=== PATIENT | female | born 1980 | race American Indian/Alaskan Native ===

== ENCOUNTER 2021-09-20 00:27 | Emergency (ER) | payer SELFPAY ==
[2021-09-20] MEDS ORDERED: ASPIRIN 325 MG TAB PO ONE (00:32)
[2021-09-20] MEDS ORDERED: hydrALAZINE 20 MG/1 ML INJ IV ONE (00:34)
--- NOTE | 2021-09-20 00:36 | Event Note ---
ED Screening Note Date of service: 09/20/21 Time: 00:34 ED Screening Note: Patient is a 40-year-old -[place] female with a history of hypertension and noncompliant with her medications who presents to the ED with complaint of acute onset persistent left-sided chest pain with elevated blood pressure for the last 3 days. Patient states that she has not taken her blood pressure medications for a while and is currently visiting from [place] from [place] for the last 3 days. Patient denies shortness of breath, dizziness, syncope, nausea and vomiting or diarrhea, dysuria, abdominal pain, diaphoresis, headache, neck pain, back pain, palpitations, fever and chills or cough. This initial assessment/diagnostic orders/clinical plan/treatment(s) is/are subject to change based on patients health status, clinical progression and re- assessment by fellow clinical providers in the ED. Further treatment and workup at subsequent clinical providers discretion. Patient/guardian urged not to elope from the ED as their condition may be serious if not clinically assessed and managed. Initial orders include: EKG, chest x-ray, CBC, CMP, troponin, BNP, aspirin
[2021-09-20 01:21] LABS: Alanine Aminotransferase 21 units/L (7-56); Albumin 3.8 g/dL (3.9-5); BUN/Creatinine Ratio 14; Blood Urea Nitrogen 17 mg/dL (7-17); Calcium 9.4 mg/dL (8.4-10.2); Hemolysis Index 8
[2021-09-20 01:35] LABS: Basophils % (Auto) 0.6 % (0.0-1.8); Eosinophils # (Auto) 0.1 K/mm3 (0.0-0.4); Eosinophils % (Auto) 1.1 % (0.0-4.3); Lymphocytes # (Auto) 2.3 K/mm3 (1.2-5.4); Lymphocytes % (Auto) 28.1 % (13.4-35.0); Mean Corpuscular HGB Conc 32 % (30-34); Mean Corpuscular Volume 80 fl (79-97); Monocytes # (Auto) 0.7 K/mm3 (0.0-0.8); Monocytes % (Auto) 8.2 % (0.0-7.3); Platelet Count 403 K/mm3 (140-440); Red Blood Count 4.76 M/mm3 (3.65-5.03); Red Cell Distribution Width 18.6 % (13.2-15.2)
--- NOTE | 2021-09-20 02:26 | XRay Report ---
CHEST 1 VIEW 09/20/2021 1:08 AM INDICATION / CLINICAL INFORMATION: chest pain, elevated BP. COMPARISON: None available. FINDINGS: SUPPORT DEVICES: None. HEART / MEDIASTINUM: No significant abnormality. LUNGS / PLEURA: No significant pulmonary or pleural abnormality. No pneumothorax. ADDITIONAL FINDINGS: No significant additional findings. IMPRESSION: 1. No acute findings. Signer Name: Ryne Cervantes MD Signed: 09/20/2021 2:21 AM Workstation Name: [id number]
[2021-09-20] MEDS ORDERED: METOPROLOL TARTRATE 50 MG TAB PO ONE (02:32)
[2021-09-20] MEDS ORDERED: NITROGLYCERIN 0.4 MG TAB SUBL SL ONE (02:32)
--- NOTE | 2021-09-20 04:59 | Emergency Department Report ---
ED General Adult HPI - General Chief complaint: Chest Pain Stated complaint: CP X 2 HOURS Time Seen by Provider: 09/20/21 00:49 Source: patient Mode of arrival: Ambulatory Limitations: No Limitations - History of Present Illness Initial comments: Patient is 41 years old female with history of hypertension, noncompliant with her medications. Patient stated that she was taking amlodipine but she did not have prescription for a while. Patient presented to the ER complaining of substernal chest pain with no radiation. Patient describes her chest pain as heaviness. She denies any shortness of breath, fever, chills or cough. Severity scale (0 -10): 10 - Related Data Allergies Allergy/AdvReac Type Severity Reaction Status Date / Time No Known Allergies Allergy Unverified 09/20/21 00:30 ED Review of Systems ROS: Stated complaint: CP X 2 HOURS Other details as noted in HPI Comment: All other systems reviewed and negative Constitutional: denies: chills, fever Respiratory: denies: cough, shortness of breath, SOB with exertion Cardiovascular: chest pain Gastrointestinal: denies: abdominal pain, nausea, vomiting Musculoskeletal: denies: back pain Neurological: denies: headache, weakness, numbness, paresthesias, confusion ED Physical Exam - General Limitations: No Limitations General appearance: alert, in no apparent distress - Head Head exam: Present: atraumatic, normocephalic, normal inspection - Eye Eye exam: Present: normal appearance, PERRL - ENT ENT exam: Present: normal exam, normal orophraynx, mucous membranes moist - Neck Neck exam: Present: normal inspection, full ROM. Absent: tenderness, m eningismus - Respiratory Respiratory exam: Present: normal lung sounds bilaterally - Cardiovascular Cardiovascular Exam: Present: regular rate, normal rhythm, normal heart sounds - GI/Abdominal GI/Abdominal exam: Present: soft, normal bowel sounds. Absent: distended, tenderness, guarding, rebound, rigid, organomegaly, mass, bruit, pulsatile mass, hernia - Extremities Exam Extremities exam: Present: normal inspection, full ROM, normal capillary refill. Absent: tenderness - Back Exam Back exam: Present: normal inspection, full ROM. Absent: CVA tenderness (R), CVA tenderness (L) - Neurological Exam Neurological exam: Present: alert, oriented X3, CN II-XII intact, normal gait, reflexes normal. Absent: motor sensory deficit - Psychiatric Psychiatric exam: Present: normal mood - Skin Skin exam: Present: warm, intact, normal color ED Course Vital Signs 09/20/21 09/20/21 00:30 02:58 Temperature 98.7 F Pulse Rate 97 H 92 H Respiratory 17 Rate Blood Pressure 207/126 200/126 [Right] O2 Sat by Pulse 99 Oximetry ED Medical Decision Making - Lab Data Result diagrams: 09/20/21 00:42 09/20/21 00:42 - EKG Data -: EKG Interpreted by Ut EKG shows normal: sinus rhythm Rate: normal - EKG Data Interpretation: no acute changes - Radiology Data Radiology results: report reviewed - Medical Decision Making Patient is 41 years old female with history of hypertension, noncompliant with her medications. Patient stated that she was taking amlodipine but she did not have prescription for a while. Patient presented to the ER complaining of substernal chest pain with no radiation. Patient describes her chest pain as heaviness. She denies any shortness of breath, fever, chills or cough. EKG is unremarkable. Labs reviewed and is unremarkable including a negative troponin x2. Heart score is 2. Patient found to have significantly elevated blood pressure for which she received hydralazine with significant improvement. Patient given prescription for amlodipine and advised to follow-up with her primary care physician for outpatient cardiac work-up and to return to the ER if she develop any new symptoms. Critical care attestation.: If time is entered above; I have spent that time in minutes in the direct care of this critically ill patient, excluding procedure time. ED Disposition Clinical Impression: Acute chest pain, Malignant hypertension Disposition: HOME / SELF CARE / HOMELESS Is pt being admited?: No Condition: Stable Instructions: Chest Pain (ED), Hypertension (ED), Nonspecific Chest Pain, Adult, Hypertension, Adult, [id number] Referrals: PRIMARY CARE, [Primary Care Provider] - 3-5 Days
[2021-09-20 05:18] VITALS: BP 179/100
--- NOTE | 2021-09-25 20:57 | Electrocardiograph Report ---
[facility] Test Date: 2021-09-20 Test Time: 00:37:31 Pat Name: JANINE GRAFF Department: Room: Gender: F Model Maker Scale: REYES : 1980 Requested By: ANGELICA KNIGHT Order Number: [id number] Reading MD: Brian Melvin Measurements Intervals [place] Rate: 97 P: 58 IN: 172 QRS: -45 QRSD: 82 T: 91 QT: 385 QTc: 491 Interpretive Statements Sinus rhythm Left anterior fascicular block PRWP Nonspecific STTW abnormalities No previous ECG available for comparison Electronically Signed On 09-25-2021 20:56:53 EST by Brian Melvin
== END 2021-09-20 05:00 | disposition home or self-care (01) ==
LOC: ED 00:27
DX: R07.9 Chest pain, unspecified (principal); I10 Essential (primary) hypertension
CPT/HCPCS: 36415; 71045; 80053; 83880; 84484; 84703; 85025; 93005; 99284